=== PATIENT | female | born 1985 | race Caucasian/White ===

== ENCOUNTER 2020-06-02 16:22 | Emergency (ER) | payer SELFPAY ==
--- NOTE | 2020-06-02 21:24 | ER ---
Nurse's Notes [facility] Name: Myles Ramesh Age: 34 yrs Sex: Female : 1985 Arrival Date: 06/02/2020 Time: 16:25 Bed Waiting Private MD: Diagnosis: Presentation: 06/02 16:48 Chief complaint: Patient states: "high BP for 5 days now. having headaches and jd3 dizziness.". Coronavirus screen: At this time, the client does not indicate any symptoms associated with coronavirus-19. Ebola Screen: Patient negative for fever greater than or equal to 101.5 degrees Fahrenheit, and additional compatible Ebola Virus Disease symptoms. Initial Sepsis Screen: Does the patient meet any 2 criteria? No. Patient's initial sepsis screen is negative. Does the patient have a suspected source of infection? No. Patient's initial sepsis screen is negative. Risk Assessment: Do you want to hurt yourself or someone else? Patient reports no desire to harm self or others. Onset of symptoms was June 02, 2020. 16:48 Method Of Arrival: Ambulatory jd3 16:48 Acuity: FADY 3 jd3 16:51 Note Tylenol taken at 1230 today. 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 - Social history:: Smoking status: Patient reports the use of cigarette tobacco products, smokes one pack cigarettes per day. Vital Signs: 16:51 BP 159 / 96; Pulse 65; Resp 16 S; Temp 97.4(TE); Pulse Ox 99% on R/A; Weight 145.15 kg jd3 (R); Height 5 ft. 10 in. (177.80 cm) (R); Pain 6/10; 16:51 Body Mass Index 45.91 (145.15 kg, 177.80 cm) jd3 ED Course: 16:25 Patient arrived in ED. ds1 16:48 Triage completed. jd3 16:52 Arm band placed on. jd3 21:23 Yamini Villalpando, RN is Primary Nurse. iw Administered Medications: No medications were administered Outcome: :23 Eloped from waiting room, before seeing physician iw 21:24 Patient left the ED. iw Signatures: Miriam Yañez ds1 Yamini Villalpando, RN RN iw Colten Burrows RN RN jd3
[2020-06-02 21:49] VITALS: BP 159/96; TEMP 97.4; O2SAT 99
== END 2020-06-02 21:24 | disposition left against medical advice (07) ==
LOC: ER 16:22
DX: I10 Essential (primary) hypertension (principal); Z53.21 Procedure and treatment not carried out due to patient leaving prior to being seen by health care provider; F17.210 Nicotine dependence, cigarettes, uncomplicated; R51.9 Headache, unspecified; R42 Dizziness and giddiness
CPT/HCPCS: 99281

== ENCOUNTER 2020-06-09 08:45 | Emergency (ER) | payer SELFPAY ==
--- OUTSIDE RECORDS SUMMARY | 2020-06-09 08:47 | XMS REPORT | Continuity of Care Document ---
:1985 Author Organization [facility]ly [facility] t Address [address] [place] [address] Care Team Providers Name Role Phone Unavailable Unavailable Unavailable Problems This patient has no known problems. Allergies, Adverse Reactions, Alerts This patient has no known allergies or adverse reactions. Medications This patient has no known medications. Procedures This patient has no known procedures. Encounters Start End Encounter Admission Attending Care Care Encounter Source Date/Time Date/Time Type Type Clinicians Facility Department ID 2020-05-20 2020-05-20 Outpatient HINES HINES [id number] [facility] 2020-05-14 2020-05-14 Outpatient HINES HINES [id number] [facility]00 [facility] 2020-05-14 2020-05-14 Outpatient HINES HINES [id number] [facility] 00:00[facility]00 00:00[facility] 2020-05-11 2020-05-11 Outpatient HINES HINES [id number] [facility]:00[facility]00 00:00:[facility] 2020-04-14 2020-04-14 Outpatient HINES HINES [id number] [facility] 00:00[facility]00 00:00:[facility] 2020-03-16 2020-03-16 Outpatient HINES HINES [id number] [facility]:00[facility]00 00:00:[facility] 2020-03-03 2020-03-03 Outpatient HINES HINES [id number] [facility] 00:00:00 00:00:[facility] 2020-02-24 2020-02-24 Outpatient HINES HINES [id number] [facility] 00:00:00 00:00:[facility] 2020-02-11 2020-02-11 Outpatient HINES HINES [id number] [facility] 00:00:00 00:00:[facility] 2020-02-04 2020-02-04 Outpatient FLORA HINES [id number] [facility] 00[facility]00:00 00:00:[facility] Results This patient has no known results.
--- NOTE | 2020-06-09 10:24 | RAD REPORT ---
EXAM DESCRIPTION: [place] Single View06/09/2020 10:11 am CLINICAL HISTORY: cough COMPARISON: none FINDINGS: The lungs appear clear of acute infiltrate. The heart is normal size IMPRESSION: No acute abnormalities displayed
[2020-06-09 11:08] LABS: Absolute Lymphocytes (CBC) 4.3 K/uL (0.7-4.9); Basophils % 0.8 % (0-1.3); Hematocrit 43.4 % (36.0-45.0); Lymphocytes % 36.5 % (15.3-44.8); MPV 7.9 fL (7.6-11.3); RBC Red Blood Cell Count 4.82 M/uL (3.86-4.86)
[2020-06-09 11:10] LABS: Barbiturates NEGATIVE (NEGATIVE); Benzodiazepines NEGATIVE (NEGATIVE); Cocaine NEGATIVE (NEGATIVE); METHAMPHETAM NEGATIVE (NEGATIVE); Methadone NEGATIVE (NEGATIVE); Opiates NEGATIVE (NEGATIVE); Phencyclidine NEGATIVE (NEGATIVE); THC Cannibis NEGATIVE (NEGATIVE)
[2020-06-09 11:10] LABS: Urine Blood NEGATIVE (NEG); Urine Glucose NEGATIVE (NEG); Urine Protein NEGATIVE (NEG)
[2020-06-09] MEDS ORDERED: ASPIRIN 81 MG CHEWABLE TABLET ONE (11:30)
[2020-06-09 11:32] LABS: ALT/SGPT 59 U/L (12-78); AST/SGOT 29 U/L (15-37); Albumin 4.1 g/dL (3.4-5.0); Alkaline Phosphatase 61 U/L (45-117); BUN Blood Urea Nitrogen 8 mg/dL (7-18); Bicarbonate 27 mmol/L (21-32); Bilirubin Direct 0.1 mg/dL (0-0.2); Bilirubin Total 0.4 mg/dL (0.2-1.0); Glucose Level 75 mg/dL (74-106); Magnesium 2.4 mg/dL (1.8-2.4); NT PRO-BNP 24 pg/mL (<125); Potassium 3.6 mmol/L (3.5-5.1); Protein, Total 8.4 g/dL (6.4-8.2); Sodium Level 139 mmol/L (136-145); Troponin (Emerg Dept Use Only) < 0.02 ng/mL (0.0-0.045)
--- NOTE | 2020-06-09 11:46 | EDPHYS ---
Physician Documentation [facility] Name: Myles Ramesh Age: 34 yrs Sex: Female : 1985 Arrival Date: 06/09/2020 Time: 08:48 Bed 3 Private MD: BRANDIN Physician Tim Lentz HPI: 06/09 09:54 This 34 yrs old Female presents to ER via Ambulatory with complaints of Chest kristy Pain, High Blood Pressure. 09:54 The patient or guardian reports chest pain that is located primarily in the anterior kristy chest wall, bilaterally. The pain does not radiate. Associated signs and symptoms: The patient has no apparent associated signs or symptoms. The chest pain is described as dull. Duration: The patient or guardian reports multiple episodes, with no pattern. Modifying factors: The symptoms are alleviated by nothing. the symptoms are aggravated by nothing. Severity of pain: At its worst the pain was mild in the emergency department the pain is unchanged. The patient has experienced similar episodes in the past, several times. Historical: - Allergies: 09:13 Latex, Natural Rubber; ss - Home Meds: 09:13 lamotrigine 100 mg oral tr24 1.5 tabs once daily [Active]; olanzapine 5 mg oral tab 0.5 ss tab once daily [Active]; clonidine HCl 0.2 mg Oral tab 1 tab 3 times per day [Active]; oxcarbazepine 300 mg oral tab 1 tab daily [Active]; buspirone 10 mg Oral tab 1 tab 3 times per day [Active]; amlodipine 5 mg tab 1 tab once daily [Active]; metoprolol tartrate 100 mg Oral tab 1 tab once daily [Active]; lisinopril 20 mg Oral tab 1 tab once daily [Active]; buprenorphine-naloxone buccal 0.5 mg buccal "per protocol" [Active]; - PMHx: 09:13 Hypertension; Anxiety; Bipolar disorder; Depression; ss - PSHx: 09:13 right knee; throat sx; ss - Immunization history:: Adult Immunizations up to date. - Social history:: Smoking status: Patient reports the use of cigarette tobacco products, smokes one-half pack cigarettes per day. - Family history:: not pertinent. ROS: 09:54 Constitutional: Negative for fever, chills, and weight loss, Eyes: Negative for injury, kristy pain, redness, and discharge, ENT: Negative for injury, pain, and discharge, Neck: Negative for injury, pain, and swelling, Respiratory: Negative for shortness of breath, cough, wheezing, and pleuritic chest pain, Abdomen/GI: Negative for abdominal pain, nausea, vomiting, diarrhea, and constipation, Back: Negative for injury and pain, : Negative for injury, bleeding, discharge, and swelling, MS/Extremity: Negative for injury and deformity, Skin: Negative for injury, rash, and discoloration, Neuro: Negative for headache, weakness, numbness, tingling, and seizure. 09:54 Cardiovascular: Positive for chest pain. Exam: 09:54 Constitutional: This is a well developed, well nourished patient who is awake, alert, kristy and in no acute distress. Head/Face: Normocephalic, atraumatic. Eyes: Pupils equal round and reactive to light, extra-ocular motions intact. Lids and lashes normal. Conjunctiva and sclera are non-icteric and not injected. Cornea within normal limits. Periorbital areas with no swelling, redness, or edema. ENT: Nares patent. No nasal discharge, no septal abnormalities noted. Tympanic membranes are normal and external auditory canals are clear. Oropharynx with no redness, swelling, or masses, exudates, or evidence of obstruction, uvula midline. Mucous membranes moist. Neck: Trachea midline, no thyromegaly or masses palpated, and no cervical lymphadenopathy. Supple, full range of motion without nuchal rigidity, or vertebral point tenderness. No Meningismus. Chest/axilla: Normal chest wall appearance and motion. Nontender with no deformity. No lesions are appreciated. Cardiovascular: Regular rate and rhythm with a normal S1 and S2. No gallops, murmurs, or rubs. Normal PMI, no JVD. No pulse deficits. Respiratory: Lungs have equal breath sounds bilaterally, clear to auscultation and percussion. No rales, rhonchi or wheezes noted. No increased work of breathing, no retractions or nasal flaring. Abdomen/GI: Soft, non-tender, with normal bowel sounds. No distension or tympany. No guarding or rebound. No evidence of tenderness throughout. Back: No spinal tenderness. No costovertebral tenderness. Full range of motion. Female : Normal external genitalia. Skin: Warm, dry with normal turgor. Normal color with no rashes, no lesions, and no evidence of cellulitis. MS/ Extremity: Pulses equal, no cyanosis. Neurovascular intact. Full, normal range of motion. Neuro: Awake and alert, GCS 15, oriented to person, place, time, and situation. Cranial nerves II-XII grossly intact. Motor strength 5/5 in all extremities. Sensory grossly intact. Cerebellar exam normal. Normal gait. Psych: Awake, alert, with orientation to person, place and time. Behavior, mood, and affect are within normal limits. 10:24 ECG was reviewed by the Attending Physician. kristy 11:44 Musculoskeletal/extremity: Extremities: all appear grossly normal, with no appreciated kristy pain with palpation, ROM: intact in all extremities, full active range of motion, full passive range of motion, Circulation is intact in all extremities. Sensation intact. Compartment Syndrome exam of affected extremity: is normal. DVT Exam: No signs of deep vein thrombosis. no pain, no swelling, no tenderness, negative Homans' sign noted on exam, no appreciated bluish discoloration, no erythema, no increased warmth. Vital Signs: 09:07 BP 151 / 108; Pulse 107; Resp 16; Temp 98.2(TE); Pulse Ox 98% on R/A; Weight 158.76 kg; ss Height 5 ft. 10 in. (177.80 cm); Pain 5/10; 11:00 BP 129 / 84; Pulse 76; Resp 15; Pulse Ox 100% on R/A; hb 12:00 BP 131 / 93; Pulse 80; Resp 16; Pulse Ox 100% on R/A; hb 09:07 Body Mass Index 50.22 (158.76 kg, 177.80 cm) ss MDM: 09:21 Patient medically screened. kristy 09:58 Differential diagnosis: abnormal EKG, Cholelithiasis costochondritis, hiatal hernia, kristy peptic ulcer disease, pulmonary embolus, stable angina, unstable angina. HEART Score: History: Slightly Suspicious (0), ECG: Normal (0), Age: < or = 45 years (0), Risk Factors: > or = 3 Risk factors for atherosclerotic disease (2), [Hypertension] [Active Smoker] [+ Family HX] [Obesity] Troponin: < or = 1 x Normal Limit (0). The patient's deep vein thrombosis risk score was calculated as follows: Total Score: 0. This patient was found to be at low risk for a deep vein thrombosis by using the Well's assessment criteria. The patient's pulmonary embolism risk score was calculated as follows: Total Score: 0-2 points. This patient was found to be at low risk for a pulmonary embolism by using the Well's assessment criteria. DAKSHA Risk Score: not applicable. Data reviewed: vital signs, nurses notes, lab test result(s), EKG, radiologic studies. Data interpreted: threat monitoring analyst: rate is 107 beats/min, rhythm is normal sinus rhythm, Pulse oximetry: on room air is 98 %. Test interpretation: by ED physician or midlevel provider: ECG, plain radiologic studies. Counseling: I had a detailed discussion with the patient and/or guardian regarding: the historical points, exam findings, and any diagnostic results supporting the discharge/admit diagnosis, lab results, radiology results. 06/09 09:28 Order name: Basic Metabolic Panel; Complete Time: 11:43 [facility] 06/09 09:28 Order name: CBC with Diff; Complete Time: 11:43 06/09 09:28 Order name: LFT's; Complete Time: 11:43 06/09 09:28 Order name: Magnesium; Complete Time: 11:43 06/09 09:28 Order name: NT PRO-BNP; Complete Time: 11:43 06/09 09:28 Order name: Troponin (emerg Dept Use Only); Complete Time: 11:43 06/09 09:28 Order name: EKG; Complete Time: 09:29 kristy 06/09 09:28 Order name: Cardiac monitoring; Complete Time: 10:17 kristy 06/09 09:28 Order name: UDS; Complete Time: 11:43 06/09 09:29 Order name: Chest Single View; Complete Time: 10:29 [facility] 06/09 10:19 Order name: Urine Dipstick--Ancillary (enter results); Complete Time: 11:43 bd 06/09 10:19 Order name: Urine --Ancillary (enter results); Complete Time: 11:43 bd 06/09 09:28 Order name: EKG - Nurse/Tech; Complete Time: 10:17 kristy 06/09 09:28 Order name: IV Saline Lock; Complete Time: 10:17 kristy 06/09 09:28 Order name: Labs collected and sent; Complete Time: : [facility] 06/09 09:28 Order name: O2 Per Protocol; Complete Time: : [facility] 06/09 09:28 Order name: O2 Sat Monitoring; Complete Time: : [facility] 06/09 09:28 Order name: Urine Dipstick-Ancillary (obtain specimen); Complete Time: : [facility] 06/09 09:28 Order name: Urine Test (obtain specimen); Complete Time: : [facility] 06/09 10:24 Order name: Labs - recollect needed: recollect lavendar and green top; Complete Time: bd 11:00 EC:24 Rate is 84 beats/min. Rhythm is regular. QRS Bitely is Normal. AL interval is normal. QRS kristy interval is normal. QT interval is normal. No Q waves. T waves are Normal. No ST changes noted. Clinical impression: Normal ECG and No evidence of ischemia. Interpreted by me. Reviewed by me. Administered Medications: 11:20 Drug: Aspirin Chewable Tablet 324 mg Route: PO; hb 12:00 Follow up: Response: No adverse reaction hb Disposition: 06/09/20 11:45 Discharged to Home. Impression: Chest pain, unspecified, Essential (primary) hypertension, Tobacco abuse counseling, Tobacco use, Bipolar disorder. - Condition is Fair. - Discharge Instructions: Nonspecific Chest Pain, Hypertension, Bipolar Disorder, Steps to Quit Smoking, Smoking Hazards, Nonspecific Chest Pain, Qkim-lf-Ldag, Hypertension, Xcnx-wk-Upmy, How to Take Your Blood Pressure, Wlxu-tu-Cdxy, Aspirin and Your Heart, Managing Your Hypertension. - Medication Reconciliation Form, Thank You Letter, Antibiotic Education, Prescription Opioid Use form. - Follow up: Private Physician; When: 2 - 3 days; Reason: Recheck today's complaints, Continuance of care, Re-evaluation by your physician. Follow up: Shoaib Montero; When: 2 - 3 days; Reason: Recheck today's complaints, Continuance of care, Re-evaluation by your physician. - Problem is new. - Symptoms have improved. Signatures: Dispatcher [employer] EDMS Rosalie Markham Corey, MD MD cha Smirch, Shelby, RN RN Talia Aly RN RN Corrections: (The following items were deleted from the chart) 09:30 09:29 Chest Single View+RAD.RAD.BRZ ordered. [facility] EDMS 12:06 11:45 06/09/2020 11:45 Discharged to Home. Impression: Chest pain, unspecified; hb Essential (primary) hypertension; Tobacco abuse counseling; Tobacco use; Bipolar disorder. Condition is Fair. Discharge Instructions: Nonspecific Chest Pain, Hypertension, Steps to Quit Smoking, Smoking Hazards, Nonspecific Chest Pain, Xfxb-xw-Metf, Hypertension, Jxag-gb-Sswo, How to Take Your Blood Pressure, Yvkl-vs-Aprm, Aspirin and Your Heart, Managing Your Hypertension, Bipolar Disorder. Forms are Medication Reconciliation Form, Thank You Letter, Antibiotic Education, Prescription Opioid Use. Follow up: Private Physician; When: 2 - 3 days; Reason: Recheck today's complaints, Continuance of care, Re-evaluation by your physician. Follow up: Shoaib Montero; When: 2 - 3 days; Reason: Recheck today's complaints, Continuance of care, Re-evaluation by your physician. Problem is new. Symptoms have improved. kristy
--- NOTE | 2020-06-09 11:46 | ER ---
Nurse's Notes [facility] Name: Myles Ramesh Age: 34 yrs Sex: Female : 1985 Arrival Date: 06/09/2020 Time: 08:48 Bed 3 Private MD: Diagnosis: Chest pain, unspecified;Essential (primary) hypertension;Tobacco abuse counseling;Tobacco use;Bipolar disorder Presentation: 06/09 09:07 Chief complaint: Patient states: "I'm in treatment at [facility] and they took my ss blood pressure this morning and it was 197/113, so I took my medicine and it brought it down a little bit. I had a headache that is better, but I'm still having some chest pains.". Coronavirus screen: Client denies travel out of the [place] in the last 14 days. Ebola Screen: Patient denies exposure to infectious person. Patient denies travel to an Ebola-affected area in the 21 days before illness onset. Initial Sepsis Screen: Does the patient meet any 2 criteria? No. Patient's initial sepsis screen is negative. Does the patient have a suspected source of infection? No. Patient's initial sepsis screen is negative. Risk Assessment: Do you want to hurt yourself or someone else? Patient reports no desire to harm self or others. Onset of symptoms was June 09, 2020. 09:07 Method Of Arrival: Ambulatory ss 09:07 Acuity: FADY 3 ss Historical: - Allergies: 09:13 Latex, Natural Rubber; ss - Home Meds: 09:13 lamotrigine 100 mg oral tr24 1.5 tabs once daily [Active]; olanzapine 5 mg oral tab 0.5 ss tab once daily [Active]; clonidine HCl 0.2 mg Oral tab 1 tab 3 times per day [Active]; oxcarbazepine 300 mg oral tab 1 tab daily [Active]; buspirone 10 mg Oral tab 1 tab 3 times per day [Active]; amlodipine 5 mg tab 1 tab once daily [Active]; metoprolol tartrate 100 mg Oral tab 1 tab once daily [Active]; lisinopril 20 mg Oral tab 1 tab once daily [Active]; buprenorphine-naloxone buccal 0.5 mg buccal "per protocol" [Active]; - PMHx: 09:13 Hypertension; Anxiety; Bipolar disorder; Depression; ss - PSHx: 09:13 right knee; throat sx; ss - Immunization history:: Adult Immunizations up to date. - Social history:: Smoking status: Patient reports the use of cigarette tobacco products, smokes one-half pack cigarettes per day. - Family history:: not pertinent. Screenin:41 Abuse screen: Denies threats or abuse. Denies injuries from another. Nutritional hb screening: No deficits noted. Tuberculosis screening: No symptoms or risk factors identified. Fall Risk None identified. Assessment: 09:30 General: Appears in no apparent distress. Behavior is calm, cooperative. Pain: Pain hb currently is 4 out of 10 on a pain scale. Neuro: Level of Consciousness is awake, alert, obeys commands, Oriented to person, place, time, situation. Cardiovascular: Capillary refill < 3 seconds Patient's skin is warm and dry. Respiratory: Respiratory effort is even, unlabored, Respiratory pattern is regular, symmetrical. GI: No signs and/or symptoms were reported involving the gastrointestinal system. : No signs and/or symptoms were reported regarding the genitourinary system. EENT: No signs and/or symptoms were reported regarding the EENT system. Derm: Skin is pink, warm \\T\\ dry. Musculoskeletal: No signs and/or symptoms reported regarding the musculoskeletal system. 10:30 Reassessment: Patient appears in no apparent distress at this time. No changes from hb previously documented assessment. Patient and/or family updated on plan of care and expected duration. Pain level reassessed. Patient is alert, oriented x 3, equal unlabored respirations, skin warm/dry/pink. 11:40 Reassessment: Patient appears in no apparent distress at this time. Patient and/or hb family updated on plan of care and expected duration. Pain level reassessed. Patient is alert, oriented x 3, equal unlabored respirations, skin warm/dry/pink. Vital Signs: 09:07 BP 151 / 108; Pulse 107; Resp 16; Temp 98.2(TE); Pulse Ox 98% on R/A; Weight 158.76 kg; Height 5 ft. 10 in. (177.80 cm); Pain 5/10; 11:00 BP 129 / 84; Pulse 76; Resp 15; Pulse Ox 100% on R/A; hb 12:00 BP 131 / 93; Pulse 80; Resp 16; Pulse Ox 100% on R/A; hb 09:07 Body Mass Index 50.22 (158.76 kg, 177.80 cm) ED Course: 08:48 Patient arrived in ED. mr 09:09 Triage completed. ss 09:13 Arm band placed on right wrist. 09:21 Tim Lentz MD is Attending Physician. [facility] 09:30 Patient has correct armband on for positive identification. Bed in low position. Call hb light in reach. Side rails up X 1. bus driver/monitor on. Pulse ox on. NIBP on. 09:41 Talia Aly, RN is Primary Nurse. hb 09:42 Missed attempt(s): 20 gauge in right forearm. Bleeding controlled, band aid applied, hb catheter tip intact. Patient maintains SpO2 saturation greater than 95% on room air. 10:10 Chest Single View In Process Unspecified. EDMS 11:01 Inserted saline lock: 22 gauge in left forearm, using aseptic technique. ,using aseptic hb technique. by Harsh HERNANDEZ Blood collected. 11:45 Shoaib Montero MD is Referral Physician. kristy 12:05 No provider procedures requiring assistance completed. IV discontinued, intact, hb bleeding controlled, No redness/swelling at site. Administered Medications: 11:20 Drug: Aspirin Chewable Tablet 324 mg Route: PO; hb 12:00 Follow up: Response: No adverse reaction hb Outcome: 11:45 Discharge ordered by . kristy 12:05 Discharged to home ambulatory. hb 12:05 Condition: stable 12:05 Discharge instructions given to patient, Instructed on discharge instructions, follow up and referral plans. medication usage, Demonstrated understanding of instructions, follow-up care, medications. 12:06 Patient left the ED. hb Signatures: Dispatcher [employer] EDME Tim Lentz MD MD cha Rivera, Mary mr FuastinHeidy, MARY RN Talia Aly, MARY RN hb
[2020-06-09 12:31] VITALS: TEMP 98.2
[2020-06-09 12:32] VITALS: O2SAT 100
[2020-06-09 12:34] VITALS: BP 131/93
--- NOTE | 2020-06-11 05:43 | EKG ---
Test Date: 2020-06-09 Test Time: 10:08:52 [employer]: HB MEASUREMENT RESULTS: Intervals: Rate: 84 NE: 146 QRSD: 90 QT: 366 QTc: 432 [place]: P: 66 NE: 146 QRS: 52 T: 49 INTERPRETIVE STATEMENTS: Normal sinus rhythm with sinus arrhythmia Normal ECG No previous ECG available for comparison Electronically Signed On 06-11-20 05:36:21 ARCH SUPPORT MAKER by Shoaib Montero
== END 2020-06-09 12:06 | disposition home or self-care (01) ==
LOC: ER 08:45
DX: I10 Essential (primary) hypertension (principal); F31.9 Bipolar disorder, unspecified; Z71.6 Tobacco abuse counseling; Z72.0 Tobacco use; Z91.040 Latex allergy status; Z91.048 Other nonmedicinal substance allergy status
CPT/HCPCS: 36415; 71045; 80048; 80076; 80307; 81003; 81025; 83735; 83880; 84484; 85025; 93005; 99285

== ENCOUNTER 2020-06-10 11:38 | Emergency (ER) | payer SELFPAY ==
--- OUTSIDE RECORDS SUMMARY | 2020-06-10 11:44 | XMS REPORT | Continuity of Care Document ---
:1985 Author Organization [facility] t Address [address] [place] [address] Care Team Providers Name Role Phone Unavailable [...] Department ID 2020-05-20 2020-05-20 Outpatient HINES HINES [id number] [facility] 00:00:00 00:00[facility] 2020-05-14 2020-05-14 Outpatient HINES HINES [id number] [facility] 00:00:00 00:00:[facility] 2020-05-14 2020-05-14 Outpatient HINES HINES [id number] [facility] 00:00:00 00:00:[facility] 2020-05-11 2020-05-11 Outpatient HINES HINES [id number] [facility] 00:00:00 00:00:[facility] 2020-04-14 2020-04-14 Outpatient HINES HINES [id number] [facility] 00:00:00 00:00:00 [facility] 2020-03-16 2020-03-16 Outpatient HINES HINES [id number] [facility] 00:00:00 00:00:00 [facility] 2020-03-03 2020-03-03 Outpatient HINES HINES [id number] [facility] 00:00:00 00:00:00 [facility] 2020-02-24 2020-02-24 Outpatient HINES HINES [id number] [facility] 00:00:00 00:00:[facility] 2020-02-11 2020-02-11 Outpatient HINES HINES [id number] [facility] 00:00:00 00:00:[facility] 2020-02-04 2020-02-04 Outpatient HINES HINES [id number] [facility] 00:00:00 00:00:[facility] Results This patient has no known results.
[2020-06-10 14:22] LABS: Absolute Lymphocytes (CBC) 4.2 K/uL (0.7-4.9); Basophils % 0.8 % (0-1.3); Lymphocytes % 38.1 % (15.3-44.8); MPV 8.1 fL (7.6-11.3); RBC Red Blood Cell Count 4.83 M/uL (3.86-4.86)
[2020-06-10 14:43] LABS: ALT/SGPT 55 U/L (12-78); AST/SGOT 23 U/L (15-37); Albumin 4.1 g/dL (3.4-5.0); Alkaline Phosphatase 61 U/L (45-117); BUN Blood Urea Nitrogen 8 mg/dL (7-18); Bicarbonate 27 mmol/L (21-32); Bilirubin Direct 0.2 mg/dL (0-0.2); Bilirubin Total 0.4 mg/dL (0.2-1.0); Glucose Level 133 mg/dL (74-106); Magnesium 2.4 mg/dL (1.8-2.4); NT PRO-BNP 12 pg/mL (<125); Potassium 3.5 mmol/L (3.5-5.1); Protein, Total 8.5 g/dL (6.4-8.2); Sodium Level 137 mmol/L (136-145); Troponin (Emerg Dept Use Only) < 0.02 ng/mL (0.0-0.045)
--- NOTE | 2020-06-10 14:51 | RAD REPORT ---
EXAM DESCRIPTION: RAD - Chest Single View - 06/10/2020 2:34 pm CLINICAL HISTORY: CHEST PAIN Chest pain. COMPARISON: Chest Single View dated 06/09/2020 FINDINGS: Portable technique limits examination quality. The lungs are grossly clear. The heart is normal in size. No displaced fractures. IMPRESSION: No acute intrathoracic process suspected.
[2020-06-10 14:52] LABS: Protime INR 0.98
--- NOTE | 2020-06-10 14:55 | ER ---
Nurse's Notes [facility] Name: Myles Ramesh Age: 34 yrs Sex: Female : 1985 Arrival Date: 06/10/2020 Time: 11:39 Bed 8 Private MD: Diagnosis: Chest pain, unspecified Presentation: 06/10 12:20 Chief complaint: Patient states: was here yesterday for elevated BP. It's still high, ca1 and am having tingling sensation on my L arm and some chest pains started around 0830 this morning. Coronavirus screen: Client denies travel out of the [place] in the last 14 days. At this time, the client does not indicate any symptoms associated with coronavirus-19. Ebola Screen: Patient negative for fever greater than or equal to 101.5 degrees Fahrenheit, and additional compatible Ebola Virus Disease symptoms Patient denies exposure to infectious person. Patient denies travel to an Ebola-affected area in the 21 days before illness onset. No symptoms or risks identified at this time. Initial Sepsis Screen: Does the patient meet any 2 criteria? No. Patient's initial sepsis screen is negative. Does the patient have a suspected source of infection? No. Patient's initial sepsis screen is negative. Risk Assessment: Do you want to hurt yourself or someone else? Patient reports no desire to harm self or others. Onset of symptoms was June 10, 2020. 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 ca1 Historical: - Allergies: 12:24 Latex, Natural Rubber; ca1 - Home Meds: 12:24 amlodipine 5 mg tab 1 tab once daily [Active]; buspirone 10 mg Oral tab 1 tab 3 times ca1 per day [Active]; buprenorphine-naloxone 0.5 mg buccal "per protocol" [Active]; clonidine HCl 0.2 mg Oral tab 1 tab 3 times per day [Active]; lamotrigine 100 mg Oral tr24 1.5 tabs once daily [Active]; lisinopril 20 mg Oral tab 1 tab once daily [Active]; metoprolol tartrate 100 mg Oral tab 1 tab once daily [Active]; olanzapine 5 mg Oral tab 0.5 tab once daily [Active]; oxcarbazepine 300 mg Oral tab 1 tab daily [Active]; - PMHx: 12:24 Anxiety; Bipolar disorder; Depression; Hypertension; ca1 - PSHx: 12:24 right knee; throat sx; ca1 - Immunization history:: Flu vaccine is up to date. - Social history:: Smoking status: Patient reports the use of cigarette tobacco products, smokes one-half pack cigarettes per day. Screenin:35 Abuse screen: Denies threats or abuse. Denies injuries from another. Nutritional iw screening: No deficits noted. Tuberculosis screening: No symptoms or risk factors identified. Fall Risk None identified. Assessment: 14:35 General: Appears in no apparent distress. Behavior is calm, cooperative. Pain:. Neuro: iw Level of Consciousness is awake, alert, obeys commands, Oriented to person, place, time, situation, Moves all extremities. Full function. Cardiovascular: Capillary refill < 3 seconds in bilateral fingers Patient's skin is warm and dry. Respiratory: Respiratory effort is even, unlabored, Respiratory pattern is regular, symmetrical. Derm: Skin is pink, warm \\T\\ dry. normal. Musculoskeletal: Range of motion: intact in all extremities. Vital Signs: 12:20 BP 117 / 79; Pulse 82; Resp 16 S; Temp 97.4(TE); Pulse Ox 99% on R/A; Weight 142.88 kg ca1 (R); Height 5 ft. 10 in. (177.80 cm) (R); Pain 0/10; 12:20 Body Mass Index 45.20 (142.88 kg, 177.80 cm) ca1 ED Course: 11:39 Patient arrived in ED. as 12:22 Triage completed. ca1 12:24 Arm band placed on right wrist. ca1 13:29 Phill Meyer PA is PHCP. jmm 13:29 Twan Savage MD is Attending Physician. jmm 14:06 Yamini Villalpando, MARY is Primary Nurse. iw 14:34 XRAY Chest (1 view) In Process Unspecified. EDMS 14:35 Patient has correct armband on for positive identification. iw 15:31 No provider procedures requiring assistance completed. IV discontinued, intact, iw bleeding controlled, No redness/swelling at site. Pressure dressing applied. Administered Medications: No medications were administered Outcome: 14:55 Discharge ordered by MD. jmm 15:31 Discharged to home ambulatory. iw 15:31 Condition: good 15:31 Discharge instructions given to patient, Instructed on discharge instructions, follow up and referral plans. Demonstrated understanding of instructions, follow-up care. 15:32 Patient left the ED. iw Signatures: Dispatcher [employer] Phill Nascimento PA PA jmm Martinez, Amelia as Williams, Irene, RN RN iw Yudelka Kee RN RN ca1
--- NOTE | 2020-06-10 14:56 | EDPHYS ---
Physician Documentation [facility] Name: Myles Ramesh Age: 34 yrs Sex: Female : 1985 Arrival Date: 06/10/2020 Time: 11:39 Bed 8 Private MD: ED Physician Twan Savage HPI: 06/10 13:49 This 34 yrs old Female presents to ER via Ambulatory with complaints of Blood jmm Pressure Problem - tingling. 13:49 The patient or guardian reports chest pain that is located primarily in the substernal jmm area. The pain radiates to the left arm. Associated signs and symptoms: Pertinent positives: tingling. The chest pain is described as aching. This is a 34 year old female with a history of anxiety, depression, bi polar, htn that presents to the ED with complaints of chest pain beginning yesterday. patient was evaluated in the ED with negative labs. Patient states symptoms returned today with tingling to her left arm. . 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 - Irregular menses ca1 Historical: - Allergies: 12:24 Latex, Natural Rubber; ca1 - Home Meds: 12:24 amlodipine 5 mg tab 1 tab once daily [Active]; buspirone 10 mg Oral tab 1 tab 3 times ca1 per day [Active]; buprenorphine-naloxone 0.5 mg buccal "per protocol" [Active]; clonidine HCl 0.2 mg Oral tab 1 tab 3 times per day [Active]; lamotrigine 100 mg Oral tr24 1.5 tabs once daily [Active]; lisinopril 20 mg Oral tab 1 tab once daily [Active]; metoprolol tartrate 100 mg Oral tab 1 tab once daily [Active]; olanzapine 5 mg Oral tab 0.5 tab once daily [Active]; oxcarbazepine 300 mg Oral tab 1 tab daily [Active]; - PMHx: 12:24 Anxiety; Bipolar disorder; Depression; Hypertension; ca1 - PSHx: 12:24 right knee; throat sx; ca1 - Immunization history:: Flu vaccine is up to date. - Social history:: Smoking status: Patient reports the use of cigarette tobacco products, smokes one-half pack cigarettes per day. ROS: 13:49 Constitutional: Negative for fever, chills, and weight loss, Respiratory: Negative for jmm shortness of breath, cough, wheezing, and pleuritic chest pain, Abdomen/GI: Negative for abdominal pain, nausea, vomiting, diarrhea, and constipation. 13:49 Cardiovascular: Positive for 13:49 Cardiovascular: Positive for chest pain. 13:49 All other systems are negative. Exam: 13:49 Constitutional: This is a well developed, well nourished patient who is awake, alert, jmm and in no acute distress. Head/Face: atraumatic. Eyes: EOMI, no conjunctival erythema appreciated ENT: Moist Mucus Membranes Neck: Trachea midline, Supple Chest/axilla: Normal chest wall appearance and motion. Cardiovascular: Regular rate and rhythm. No edema appreciated Respiratory: Normal respirations, no respiratory distress appreciated Abdomen/GI: Non distended, soft Back: Normal ROM Skin: General appearance color normal MS/ Extremity: Moves all extremities, no obvious deformities appreciated, no edema noted to the lower extremities Neuro: Awake and alert, normal gait Psych: Behavior is normal, Mood is normal, Patient is cooperative and pleasant Vital Signs: 12:20 BP 117 / 79; Pulse 82; Resp 16 S; Temp 97.4(TE); Pulse Ox 99% on R/A; Weight 142.88 kg ca1 (R); Height 5 ft. 10 in. (177.80 cm) (R); Pain 0/10; 12:20 Body Mass Index 45.20 (142.88 kg, 177.80 cm) ca1 MDM: 13:34 Patient medically screened. [facility] 14:54 Data reviewed: vital signs, nurses notes. Counseling: I had a detailed discussion with [facility] the patient and/or guardian regarding: the historical points, exam findings, and any diagnostic results supporting the discharge/admit diagnosis, lab results, radiology results, the need for outpatient follow up, to return to the emergency department if symptoms worsen or persist or if there are any questions or concerns that arise at home. ED course: Labs unremarkable. Patient is advised to follow up with cardio for further evaluation. Patient understood and agrees with the plan of care. . 06/10 13:48 Order name: Basic Metabolic Panel [facility] 06/10 13:48 Order name: CBC with Diff [facility] 06/10 13:48 Order name: LFT's [facility] 06/10 13:48 Order name: Magnesium [facility] 06/10 13:48 Order name: NT PRO-BNP [facility] 06/10 13:48 Order name: PT-INR; Complete Time: 14:53 [facility] 06/10 13:48 Order name: Troponin (emerg Dept Use Only); Complete Time: 14:53 [facility] 06/10 13:48 Order name: XRAY Chest (1 view); Complete Time: 14:53 [facility] 06/10 13:48 Order name: D-Dimer; Complete Time: 14:53 [facility] 06/10 13:49 Order name: Basic Metabolic Panel; Complete Time: 14:53 [facility] 06/10 13:49 Order name: CBC with Automated Diff; Complete Time: 14:35 [facility] 06/10 13:49 Order name: Liver (Hepatic) Function; Complete Time: 14:53 [facility] 06/10 13:49 Order name: Magnesium; Complete Time: 14:53 [facility] 06/10 13:49 Order name: NT PRO-BNP; Complete Time: 14:53 [facility] 06/10 12:26 Order name: EKG; Complete Time: 12:27 [facility] 06/10 12:26 Order name: EKG - Nurse/Tech; Complete Time: 12:30 [facility] 06/10 13:48 Order name: Cardiac monitoring; Complete Time: 14:06 [facility] 06/10 13:48 Order name: IV Saline Lock; Complete Time: 14:06 [facility] 06/10 13:48 Order name: Labs collected and sent; Complete Time: 14:06 [facility] 06/10 13:48 Order name: O2 Per Protocol; Complete Time: 14:06 [facility] 06/10 13:48 Order name: O2 Sat Monitoring; Complete Time: 14:07 [facility] Administered Medications: No medications were administered Disposition: 17:57 Co-signature as Attending Physician, Twan Savage MD. rn Disposition: 06/10/20 14:55 Discharged to Home. Impression: Chest pain, unspecified. - Condition is Stable. - Discharge Instructions: Nonspecific Chest Pain. - Medication Reconciliation Form, Thank You Letter, Antibiotic Education, Prescription Opioid Use form. - Follow up: Private Physician; When: 2 - 3 days; Reason: Recheck today's complaints, Continuance of care, Re-evaluation by your physician. Signatures: Dispatcher [employer] [facility] Phill Meyer PA PA Yamini Rodriguez RN RN iw Nieto, Roman, MD MD rn Acob, MARY Jha RN ca1 Corrections: (The following items were deleted from the chart) 15:32 14:55 06/10/2020 14:55 Discharged to Home. Impression: Chest pain, unspecified. iw Condition is Stable. Forms are Medication Reconciliation Form, Thank You Letter, Antibiotic Education, Prescription Opioid Use. Follow up: Private Physician; When: 2 - 3 days; Reason: Recheck today's complaints, Continuance of care, Re-evaluation by your physician. lorraine
[2020-06-10 17:17] VITALS: BP 117/79; TEMP 97.4; O2SAT 99
--- NOTE | 2020-06-11 05:38 | EKG ---
Test Date: 2020-06-10 Test Time: 12:30:09 Director Of Special Education: NILDA MEASUREMENT RESULTS: Intervals: Rate: 85 LA: 142 QRSD: 94 QT: 378 QTc: 449 [place]: P: 69 LA: 142 QRS: 67 T: 57 INTERPRETIVE STATEMENTS: Normal sinus rhythm Normal ECG Compared to ECG 06/09/2020 10:08:52 Sinus arrhythmia no longer present Electronically Signed On 06-11-20 05:35:37 DIE DRAWING CHECKER by Shoaib Montero
== END 2020-06-10 15:32 | disposition home or self-care (01) ==
LOC: ER 11:38
DX: R07.9 Chest pain, unspecified (principal); F17.210 Nicotine dependence, cigarettes, uncomplicated; I10 Essential (primary) hypertension; F31.9 Bipolar disorder, unspecified; F41.9 Anxiety disorder, unspecified
CPT/HCPCS: 36415; 71045; 80048; 80076; 83735; 83880; 84484; 85025; 85379; 85610; 93005; 99283